=== PATIENT | female | born 1985 ===

== ENCOUNTER 2024-01-06 11:47 | Emergency (ER) | payer OTHER, SELFPAY ==
--- NOTE | ~2024-01-06 | CT_ITS ---
EXAMINATION: CTA chest PE protocol DATE: 01/06/2024 14:59 INDICATION: Shortness of breath. TECHNIQUE: Computed tomography angiography (CTA) of the chest was performed with 100 mL Omnipaque-350 intravenous contrast timed to evaluate the pulmonary arteries. Coronal maximum intensity projection 3D-reconstructions were created by the technologist. Automated exposure control and iterative reconst ruction technique were employed. The dose-length product was 388.82 mGy-cm. COMPARISON: None. FINDINGS: The lungs demonstrate mild atelectasis. No pleural effusion. The heart size is normal. No p ericardial effusion. There is no pulmonary embolus. There is a small sliding hiatal hernia. There is mild thoracic spondylosis. IMPRESSION: 1. No pulmonary embolus. Reviewed, dictated and finalized at location A. IMPRESSION: 1. No pulmonary embolus.
--- NOTE | ~2024-01-06 | XR_ITS ---
EXAMINATION: XR chest 1V portable DATE: 01/06/2024 12:55 INDICATION: Shortness of breath. TECHNIQUE: A single frontal view of the chest was obtained. COMPARISON: None. FINDINGS: There is no pneumonia, pleural effusion, or pneumothorax. The heart size is normal. IMPRESSION: 1. No acute cardiopulmonary disease. Reviewed, dictated and finalized at location A.
[2024-01-06 11:58] VITALS: BP 105/75; PULSE 99; RESP 17; TEMP 36.7; O2SAT 100
--- NOTE | 2024-01-06 12:17 | ECG_ITS ---
Test Date: 2024-01-06 13:15:04 Measurements Intervals [place] Rate: 79 P: 14 SD: 170 QRS: -11 QRSD: 76 T: -8 QT: 366 QTc: 421 Interpretive Statements SINUS RHYTHM LOW QRS VOLTAGE IN PRECORDIAL LEADS [QRS DEFLECTION < 1.0 mV IN CHEST LEADS] NONSPECIFIC T-WAVE FLATTENING BORDERLINE ECG No previous ECG available for comparison Electronically Signed On 01-06-2024 15:07:10 CDT by Deshaun Lorenzo M.D.
--- NOTE | 2024-01-06 12:17 | ED.RECABL ---
HPI - Recheck/Abnormal Lab/Rx General Chief Complaint: Recheck/Abnormal Lab/Rx Stated Complaint: low bp Time Seen by Provider: 01/06/24 11:59 History of Present Illness HPI narrative: This is a 38-year-old female with a past medical history significant for Soraida's thyroiditis, previous sepsis from pilonidal cysts, frequent PVCs. Today she presents to the ED for evaluation of low blood pressure, high heart rate and fever. Patient states she was sent in from her primary care provider's clinic appointment when she was following up her previous ER visit for a syncopal episode on Tuesday. Patient states that they were having a hard time getting her blood pressure and was low and she had a hard heart rates of the center into the ED for evaluation. Patient presently states that she has been feeling tired, having breathlessness sensations and chest pressure sensations in addition to fevers at home with a T-max of 101.3? yesterday. She has been experiencing myalgias in her bilateral lower extremities but no calf swelling or recent procedures, long travels. Denies any cough, headache, nausea, vomiting, vision changes. Patient states that she has had previous pilonidal cyst that is currently being treated with Bactrim that led to sepsis previously requiring intervention and drainage. She is concerned that she could be having a similar experience here today. Related Data Allergies Allergy/AdvReac Type Severity Reaction Status Date / Time No Known Allergies Allergy Mild Verified 01/06/24 11:49 Review of Systems Review of Systems: As reviewed above in the HPI Exam Narrative: GENERAL: Tired-appearing but well nourished not in any apparent distress, conversing in full sentences HEAD: [Normocephalic, atraumatic.] EYES: [PERRLA and EOMI.] ENT: Nares clear, no rhinorrhea or epistaxis. Mucous membranes moist. NECK: Supple. CHEST: [Clear to auscultation. No respiratory distress.] HEART: Tachycardic pulse but regular. No murmur heard. [Normal peripheral pulses.] Warm extremities ABDOMEN: [Soft, nondistended], [nontender], [No rigidity or guarding] EXTREMITIES: Normal range of motion. [No edema.] No tenderness or palpable cords in the bilateral lower extremities SKIN: Warm, dry, no rash. Previous incision sites from prior cyst on the perirectal region appear clean, dry without any drainage or erythema, induration or sign of infection NEURO: [No focal deficits]. Alert and oriented [x3.] PSYCH: [Normal mood and affect.] Course Vital Signs Vital signs: Vital Signs Temperature 36.7 C 01/06/24 11:58 Pulse Rate 99 01/06/24 11:58 Respiratory Rate 17 01/06/24 11:58 Blood Pressure 105/75 01/06/24 11:58 Pulse Oximetry 100 01/06/24 11:58 Temperature 36.7 C 01/06/24 11:58 Pulse Rate 82 01/06/24 14:31 Respiratory Rate 13 01/06/24 14:31 Blood Pressure 114/76 01/06/24 14:31 Pulse Oximetry 100 01/06/24 14:31 MDM - Recheck/Abnormal Lab/Rx MDM Narrative Medical decision making narrative: This is a 30-year-old female with a history of Soraida's thyroiditis, frequent PVCs, previous sepsis from infected pilonidal cyst. She presents today with concerns of low blood pressure, high heart rate and fever. She was sent in by her primary care provider for evaluation after they were unable to get a blood pressure at her regular doctor visit this morning. She appears tired but otherwise in good health and not in any acute distress. She has a reassuring examination aside from some minor tachycardia with a regular rhythm. No fever here today and she did not take any antipyretics prior to arrival. Given her patient's significant past medical history and concerns for recent sepsis from pilonidal cyst that she is still currently taking Bactrim for we did elect to have a thorough investigative workup including CBC, CMP, D-dimer, CPK, lactic acid, coags, EKG, chest x-ray. She was provide hydration with only likely Ri
[2024-01-06] MEDS: LACTATED RINGERS 1,000 ML 999 ML IV CONT (12:30)
[2024-01-06 12:38] LABS: Basophils Percent Auto 0.8 % (0.2-1.2); Eosinophils Absolute Auto 0.2 K/mm3 (0-0.3); Eosinophils Percent Auto 5.3 % (0-4.4); Hematocrit 34.8 % (37.0-47.0); Hemoglobin 11.1 g/dL (12.0-15.0); Immature Granulocyte Absolute 0.01 K/mm3 (0.00-0.031); Immature Granulocyte Percent A 0.3 % (0-0.5); Lymphocytes Absolute Auto 1.56 K/mm3 (0.9-3.2); Lymphocytes Percent Auto 41.3 % (18.3-44.2); Mean Corpuscular HGB Conc 31.9 g/dl (32-36); Mean Corpuscular Hemoglobin 28.1 pg (26-34); Mean Corpuscular Volume 88.1 fl (80-100); Monocytes Absolute Auto 0.4 K/mm3 (0.1-0.6); Monocytes Percent Auto 10.1 % (2.6-8.5); Neutrophils Absolute Auto 1.6 K/mm3 (1.3-6.7); Neutrophils Percent Auto 42.2 % (45.5-73.1); Platelet Count Result 199 k/mm3 (150-375); Red Blood Count 3.95 M/mm3 (4.2-5.4); Red Cell Distribution Width 13.9 % (11.5-14.5); White Blood Count 3.8 K/mm3 (4.5-10.0)
[2024-01-06 12:49] LABS: Lactic Acid Reflex 0.8 mmol/L (0.7-2.0)
[2024-01-06 12:50] LABS: Partial Thromboplastin Time 27.2 Seconds (22.3-36.8)
[2024-01-06 12:53] LABS: Alanine Aminotransferase 34 U/L (6-35); Albumin Level 4.3 g/dL (3.5-5.1); Alkaline Phosphatase 83 U/L (38-126); Anion Gap 11 mmol/L (4-12); Aspartate Amino Transferase 47 U/L (14-36); Bilirubin,Total 0.4 mg/dL (0.2-1.3); Blood Urea Nitrogen 3 mg/dL (7-17); Calcium 8.8 mg/dL (8.4-10.2); Carbon Dioxide 24 mmol/L (22-30); Chloride 102 mmol/L (98-107); Estimated CRCL calculation 96 ml/min; Estimated Glomerular Filt Rate > 60; Glucose 94 mg/dL (65-110); Magnesium 2.1 mg/dL (1.6-2.3); Potassium 3.9 mmol/L (3.4-5.0); Sodium 137 mmol/L (137-145)
[2024-01-06 12:54] LABS: D Dimer 1.59 ug/mL (<0.48)
[2024-01-06 13:01] LABS: Troponin I < 0.012 ng/mL (0.000-0.034)
[2024-01-06 13:04] LABS: Creatine Kinase 62 U/L (30-135)
[2024-01-06 13:16] VITALS: BP 102/78; PULSE 83; RESP 13; O2SAT 100
[2024-01-06 13:19] LABS: Influenza A QL RT-PCR Negative (Negative); Influenza B QL RT-PCR Negative (Negative); SARS-CoV-2 RNA PCR Negative (Negative)
[2024-01-06 14:01] VITALS: BP 100/64; PULSE 77; RESP 20; O2SAT 100
[2024-01-06 14:31] VITALS: BP 114/76; PULSE 82; RESP 13; O2SAT 100
[2024-01-06 14:43] LABS: BEDSIDEPREGUCG Negative
== END 2024-01-06 16:12 | disposition home or self-care (01) ==
PROVIDERS: Emergency Provider Student in an Organized Health Care Education/Training Program; PCP Family Medicine
DX: I95.9 Hypotension, unspecified (principal); R55 Syncope and collapse; Z20.822 Contact with and (suspected) exposure to COVID-19; E06.3 Autoimmune thyroiditis
CPT/HCPCS: 36415; 71045; 71275; 80053; 81025; 82550; 83605; 83735; 84443; 84484; 85025; 85380; 85610; 85730; 87636; 93005; 96360; 99284; J7120; Q9967